=== PATIENT | male | born 1970 | race Caucasian/White ===

== ENCOUNTER 2025-09-04 01:45 | Emergency (ER) | payer MEDICAID ==
[~2025-09-04] VITALS: Ht 175.3 cm; Wt 81.8 kg
--- NOTE | 2025-09-04 01:50 | Physician Documentation ---
History of Present Illness ~ Stated Complaint: NAUSEA DESTIN ALS Time Seen by MD: 01:50 HPI 55-year-old male presenting with food stuck in his throat The patient tells me that he was eating corn beef at around 10:00 p.m. the day before yesterday, so about 28 hours ago. He felt like a piece got stuck in his throat. He waited a day, hoping it would past but did not. He was not able to keep down any food or fluids, and is spitting up his saliva. He went to an outside hospital, and was diagnosed with an esophageal food impaction. They did give him IV fluids, Ativan, and glucagon, without any improvement. He was also given famotidine. Labs and EKG were obtained and are unremarkable. Chest x-ray unremarkable. Here now in the ED he continues to report feeling a pressure in his chest. He is still not able to swallow his secretions. No other acute concerns. No history of similar problem. Medication Reconciliation Allergies: Coded Allergies: No Known Allergies (Unverified , 09/04/25) Review of Systems Constitutional: Denies: fever Cardiovascular: Reports: chest pain Physical Exam Physical Exam General: This is a pleasant but uncomfortable appearing middle-aged man, sitting in bed spitting his saliva into a cup HEENT: Atraumatic, oropharynx appears dry Heart: Regular rate and rhythm, normal-appearing peripheral perfusion Lungs: normal work of breathing, normal oxygen saturation on room air Abdomen: Soft, nondistended Neuro: Alert and oriented Psychiatric: Calm and cooperative with exam Progress Results/Orders Results/Orders Orders - NORA HERNADEZ MD Normal Saline 1000ml (0.9% Sodium Chlori (09/04/25 02:00) Vital Signs 09/04/25 09/04/25 01:47 02:49 Temp 97.8 Pulse 89 Resp 16 B/P (MAP) 133/79 Pulse Ox 98 O2 Flow Rate 1.0 Consults/PCP Consults/PCP : Additional Comment Consult: 2:10 a.m.: I spoke to Dr. Lind, GI. She will come evaluate the patient and perform endoscopy for intervention. Medical Decision Making Additional information obtaine: old records Findings Reviewed records from outside hospital, see HPI Differential Dx:Considerations: Unlikely: PSVT Differential Dx:Considerations: Unlikely hyperthyroidism Additional Information The patient presents as a transfer, with an esophageal food impaction. The outside hospital already attempted glucagon and other interventions without success. He will require GI team endoscopy for further treatment. He was started on maintenance fluids. GI team was consulted and plan is for endoscopy this morning. Departure Impression: Primary Impression: Esophageal obstruction due to food impaction Referrals: NO PRIMARY CARE PROVIDER (PCP) Signature Scribe Signature: emma Attestation: NORA Brizuela MD Sep 04, 2025 01:50
[2025-09-04] MEDS: normal saline 1000ml 1,000 ML IV SCH (03:50)
[2025-09-04 04:01] VITALS: TEMP 97.8
--- NOTE | 2025-09-04 05:06 | ELECTROCARDIOGRAPH REPORT ---
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 MARGI Porras Measurements Intervals Jesse Rate: 99 P: 75 ID: [id number] QRS: 78 QRSD: 107 T: 71 QT: 396 QTc: 509 Interpretive Statements Sinus rhythm AGUSTINA, consider biatrial enlargement Probable LVH with secondary repol abnrm Anterior ST elevation, probably due to LVH Prolonged QT interval Electronically Signed On 09-04-2025 12:59:[address] MARGI Porras Please click the below link to view image of tracing.
[2025-09-04] MEDS ORDERED: fentaNYL/PF 50MCG/1 ML 2ML syringe ONE (05:56)
[2025-09-04] MEDS ORDERED: midazolam 1 mg/ML 2ml injection ONE (06:03)
[2025-09-04] MEDS ORDERED: dexamethasone sod phosphate 4mg/ml inj. ONE ×2 (06:05→06:11)
[2025-09-04] MEDS ORDERED: rocuronium 10mg/ml inj IV ONE (06:11)
[2025-09-04] MEDS ORDERED: LIDOcaine 2% (20mg/ml) 5ml vial ONE (06:11)
[2025-09-04] MEDS ORDERED: propofol inj 20 ML IV ONE (06:11)
[2025-09-04] MEDS ORDERED: ondansetron/PF 4mg/2ml inj ONE (06:11)
[2025-09-04] MEDS ORDERED: glycopyrrolate 0.2mg/ml inj ONE (06:17)
[2025-09-04 06:22] VITALS: BP 138/95; PULSE 92; RESP 16; O2SAT 98
[2025-09-04 06:32] VITALS: BP 119/73; PULSE 93; RESP 16; O2SAT 97
[2025-09-04 06:42] VITALS: BP 123/85; PULSE 96; RESP 20; O2SAT 95
[2025-09-04 06:52] VITALS: BP 115/78; PULSE 96; RESP 17; O2SAT 95
[2025-09-04 08:49] VITALS: BP 128/86; PULSE 92; RESP 16; O2SAT 94
== END 2025-09-04 09:00 ==
LOC: ER 01:47
DX: T18.128A Food in esophagus causing other injury, initial encounter (principal); I49.8 Other specified cardiac arrhythmias; W44.F3XA Food entering into or through a natural orifice, initial encounter; Y93.89 Activity, other specified; Y92.89 Other specified places as the place of occurrence of the external cause; Y99.8 Other external cause status
CPT/HCPCS: 43239; 43247; 93005; 96360; 96361; 99285; J1100; J2003; J2250; J2405; J2704; J2710; J3010; J3490; J7030; Z7512; A4615; C1889